=== PATIENT | female | born 1940 | race Caucasian/White ===

== ENCOUNTER 2017-06-01 10:58 | Day surgery (SDC) | payer OTHER, MEDICARE ==
[2017-05-31 10:47] VITALS: BMI 27.4
[~2017-06-01 10:58] MED LIST: ACETAMINOPHEN 325 MG TABLET (FP) PO PRN
[2017-06-01] MEDS: TROPICAMIDE 1% OPHTH SOLN 15 ML BOTTLE ONE ×5 (11:25→11:45)
[2017-06-01] MEDS: PHENYLEPHRINE 2.5% OPHTH SOLN 15 ML BOTTLE ONE ×5 (11:25→11:45)
[2017-06-01] MEDS: GENTAMICIN SULFATE 0.3% OPHTHALMIC (EYE DROPS) 5ML BOTTLE ONE ×5 (11:25→11:45)
[2017-06-01] MEDS: FLURBIPROFEN 0.03% OPHTH SOLN 2.5 ML BOTTLE ONE ×5 (11:25→11:45)
[2017-06-01] MEDS: CYCLOPENTOLATE HCL 1% OPHTH SOLN 2 ML BOTTLE ONE ×5 (11:25→11:45)
[2017-06-01] MEDS ORDERED: MIDAZOLAM HCL 2 MG/2 ML SINGLE DOSE VIAL ONE (12:08)
[2017-06-01] MEDS ORDERED: PROPOFOL 20 ML ONE (12:12)
[2017-06-01 13:39] VITALS: TEMP 97.5
[2017-06-01 14:17] VITALS: BP 129/58; PULSE 57
--- NOTE | 2017-06-02 07:13 | OP ---
DATE OF OPERATION: 06/01/2017 PROCEDURE: Planned extracapsular cataract extraction, phacoemulsification, insertion of posterior chamber lens implant in the left eye. SURGEON: Morris Parker MD ASSISTANT PROFESSOR OF RELIGION SURGEON: Morris Parker MD COMPLICATIONS: None. PREOPERATIVE DIAGNOSIS: Mature cataract, left eye. POSTOPERATIVE DIAGNOSIS: Mature cataract, left eye. ANESTHESIOLOGIST: Jony Ahmadi MD ANESTHESIA: Local standby. FINDINGS AND PROCEDURES: After successful peribulbar anesthesia was given in the OR, the patient was prepped and draped in the usual manner, exposing the left eye. The lid speculum was inserted after Tegaderm strips were placed, and the operating microscope was brought into position over the left eye. Superior fornix-based flap was then fashioned for 12 mm using Wilber scissors and 0.12 forceps, and hemostasis achieved with electrocautery. A limbal groove was fashioned for 3 mm with the crescent blade and dissected anterior into clear cornea. A 3-mm blade was used to enter the anterior chamber. Under Viscoat, a 360-degree anterior capsulotomy was performed and the leaflet removed from the eye. Then, phacoemulsification of the entire nucleus was then done in approximately 2-1/2 minutes time followed by irrigation and aspiration of all cortical material and an intact posterior capsule and red reflex present. Then, Provisc was injected in the posterior chamber, then deep in the posterior capsule, and the implant was inspected carefully and found to be free of defects, debris, and flaws. It was folded, placed in the Provisc-filled cartridge, the cartridge placed in the injector, and then, the implant was injected into the eye such that the inferior haptic was in the inferior capsular bag, and the superior haptic in the superior capsular bag, rotated in the horizontal position with the Sinskey hook. The Provisc was aspirated out, replaced with Miochol and Miostat and BSS, and the wound was closed with a single interrupted 10-0 Ethilon sutures and tested for leakage and none was found. As I mentioned, the conjunctival tenon flap was reapproximated, and at this point, the implant was fixated in the capsular bag centrally located with the round pupil intact, posterior capsule and a red reflex present. Topical Betoptic S and Bacitracin ophthalmic ointment were placed. Then, the Tegaderm strips and lid speculum were removed from the lids. The lids were closed, and a patch and shield placed on the eye, and the patient was then discharged from the operating room to the recovery area in good condition having tolerated the procedure well. MORRIS PARKER M.D. VARGHESE/[id number]
== END 2017-06-01 14:15 | disposition home or self-care (01) ==
LOC: FASU 10:58
PROVIDERS: ATTEND Ophthalmology
PROC: 08RK3JZ Replacement of Left Lens with Synthetic Substitute, Percutaneous Approach (ICD-10-PCS; principal; 2017-06-01 12:30)
DX: H26.8 Other specified cataract (principal)

== ENCOUNTER 2017-08-17 10:16 | Day surgery (SDC) | payer OTHER, MEDICARE ==
[2017-08-11 11:10] VITALS: BMI 27.4
[2017-08-17] MEDS ORDERED: ONDANSETRON 4 MG/2 ML VIAL ONE (10:38)
[2017-08-17] MEDS ORDERED: PROPOFOL 20 ML ONE (10:39)
[2017-08-17] MEDS: PHENYLEPHRINE 2.5% OPHTH SOLN 15 ML BOTTLE ONE ×5 (10:50→11:10)
[2017-08-17] MEDS: TROPICAMIDE 1% OPHTH SOLN 15 ML BOTTLE ONE ×5 (10:50→11:10)
[2017-08-17] MEDS ORDERED: MIDAZOLAM HCL 2 MG/2 ML SINGLE DOSE VIAL ONE ×2 (10:50→12:18)
[2017-08-17] MEDS: KETOROLAC TROMETHAMINE 0.5% 5 ML BOTTLE OPTHALMIC OD SCH ×5 (10:50→11:10)
[2017-08-17] MEDS: GENTAMICIN SULFATE 0.3% OPHTHALMIC (EYE DROPS) 5ML BOTTLE ONE ×5 (10:50→11:10)
[2017-08-17] MEDS: CYCLOPENTOLATE HCL 1% OPHTH SOLN 2 ML BOTTLE ONE ×5 (10:50→11:10)
[2017-08-17] MEDS ORDERED: ACETAMINOPHEN 325 MG TABLET (FP) PO PRN (11:20)
[2017-08-17] MEDS ORDERED: LIDOCAINE HCL/PF 2% SDV 5ML VIAL ONE (11:24)
[2017-08-17] MEDS ORDERED: LIDOCAINE HCL 2% JELLY 10 ML CARTRIDGE ONE (11:25)
[2017-08-17] MEDS ORDERED: BUPIVACAINE HCL/PF 0.5% (5MG/ML) 10 ML VIAL ONE (11:25)
[2017-08-17] MEDS ORDERED: GUM MASTIC/STORAX/MSAL/ALCOHOL 1 DRP DROPSBTL MC ONE (11:25)
[2017-08-17] MEDS ORDERED: ACETYLCHOLINE 1:100 INTRA-OCUL 20 MG/2 ML KIT ONE (11:25)
[2017-08-17 13:05] VITALS: TEMP 97.9
[2017-08-17 13:38] VITALS: BP 130/85; PULSE 54
--- NOTE | 2017-08-18 11:15 | OP ---
DATE OF OPERATION: 08/17/2017 PREOPERATIVE DIAGNOSIS: Mature cataract right eye. POSTOPERATIVE DIAGNOSIS: Mature cataract right eye. PROCEDURE PERFORMED: Planned extracapsular cataract extraction via phacoemulsification with insertion of posterior chamber lens implant in the right eye. SURGEON: Morris Fried M.D. BIOANALYST: Morris Fried M.D. ANESTHESIA: Local with stand-by. ANESTHESIOLOGIST: Blaise Covington M.D. COMPLICATIONS: None. DESCRIPTION OF PROCEDURE: After successful peribulbar anesthesia was given in the OR, the patient was prepped and draped in the usual manner to expose the right eye. The operating room microscope was brought in a positioned over the eye. It should be noted that Tegaderm strips were placed on the eyelashes prior to insertion of the speculum. Attention was focused on the corneoscleral limbus, where a 12-mm fornix-based flap was fashioned for 12 mm, using Wilber scissors and 0.12 forceps. Hemostasis was achieved with wet-field cautery. Then a 3-mm limbal groove was fashioned with a crescent blade, dissecting anterior to clear cornea. Then a 3-mm blade was used to enter the anterior chamber under Viscoat. A 360-degree anterior capsulorrhexis capsulotomy was performed and the leaflet removed from the eye. Phacoemulsification of the entire nucleus was then done in 2 minutes' time, without complication, followed by irrigation and aspiration of all cortical material, leaving the entire posterior capsule and a red reflex present. Provisc was injected into the posterior chamber to deepen the posterior capsule. Then the implant was inspected carefully and found to be free of defects and free of flaws. It was folded, placed in the Provisc-filled cartridge. The cartridge was placed in the injector, and the implant was injected into the eye such that the inferior haptic was in the inferior capsular bag and the superior haptic was in the superior capsular bag and rotated into the horizontal position with a Sinskey hook. The Provisc was aspirated out and replaced with Miochol, Miostat and BSS. The wound was closed with a single interrupted 2-0 Ethilon suture. It was tested for leakage and none was found. The conjunctival Tenon's flap was reapproximated. At this point the implant was fixated in the capsular bag, centrally located, with a round pupil, intact posterior capsule and a red reflex present. Topical Betoptic S, Maxitrol ophthalmic suspension and bacitracin ophthalmic ointment were placed on the eye. The Tegaderm strips and the speculum were removed from the lids. The lids were closed, and a patch and shield placed on the eye. The patient was then discharged from the operating room to Recovery in good condition, having tolerated the procedure well. Matt BARROSO/[id number]
== END 2017-08-17 13:40 | disposition home or self-care (01) ==
LOC: FASU 10:16
PROVIDERS: ATTEND Ophthalmology
PROC: 08RJ3JZ Replacement of Right Lens with Synthetic Substitute, Percutaneous Approach (ICD-10-PCS; principal; 2017-08-17 12:00)
DX: H26.8 Other specified cataract (principal)

== ENCOUNTER 2024-05-29 18:28 | Emergency (ER) | payer OTHER, MEDICARE ==
[2024-05-29] MEDS: SODIUM CHLORIDE 1,000 ML IV STA (18:30)
[2024-05-29] MEDS ORDERED: methylPREDNISolone NA SUCC 125 MG/2 ML VIAL ONE (18:34)
[2024-05-29] MEDS ORDERED: FAMOTIDINE 20 MG/50 ML IVPB 20 MG/50 ML MG IVPB ONE (18:34)
[2024-05-29] MEDS: methylPREDNISolone NA SUCC 125 MG/2 ML VIAL IVPB ONE (18:40)
[2024-05-29 18:44] VITALS: BMI 27.3
[2024-05-29] MEDS: FAMOTIDINE 20 MG/50 ML IVPB 20 MG/50 ML MG IVPB ONE (18:45)
[2024-05-29 19:55] VITALS: BP 157/68; PULSE 60; RESP 16
== END 2024-05-29 20:16 | disposition home or self-care (01) ==
LOC: FER 18:28
PROC: 3E033GC Introduction of Other Therapeutic Substance into Peripheral Vein, Percutaneous Approach (ICD-10-PCS; principal; 2024-05-29)
PROC: 3E033GC Introduction of Other Therapeutic Substance into Peripheral Vein, Percutaneous Approach (ICD-10-PCS; 2024-05-29)
PROC: 3E033GC Introduction of Other Therapeutic Substance into Peripheral Vein, Percutaneous Approach (ICD-10-PCS; 2024-05-29)
DX: S50.361A Insect bite (nonvenomous) of right elbow, initial encounter (principal); S50.362A Insect bite (nonvenomous) of left elbow, initial encounter; S60.862A Insect bite (nonvenomous) of left wrist, initial encounter; S70.361A Insect bite (nonvenomous), right thigh, initial encounter; T63.441A Toxic effect of venom of bees, accidental (unintentional), initial encounter; Y93.H2 Activity, gardening and landscaping
CPT/HCPCS: 96365; 96375; 99284-25

== ENCOUNTER 2024-05-31 11:57 | Emergency (ER) | payer OTHER, MEDICARE ==
[2024-05-31 12:32] VITALS: BP 149/67; PULSE 68; RESP 18; TEMP 98.1; BMI 24.5
== END 2024-05-31 12:31 | disposition home or self-care (01) ==
LOC: FER 11:57
DX: M79.89 Other specified soft tissue disorders (principal); T63.441A Toxic effect of venom of bees, accidental (unintentional), initial encounter
CPT/HCPCS: 99283-25